=== PATIENT | female | born 1975 | race African-American/Black ===

== ENCOUNTER → 2016-10-15 | Outpatient (CLI) | payer BC ==
[~2016-10-15] MED LIST: ALDACTONE PO; BACTRIM DS TABL1 TA1 PO; CHOLESTEROL MED; GLUCOPHAGE XR500 MG PO; NO MEDICATIONS; VITAMIN D250000 UNIT PO; ZOFRAN ODT4 MG PO
--- NOTE | ~2016-10-15 | MY11 ---
[facility] A Service of [facility] RADIOLOGY TEXT RESULTS PATIENT: OSIRIS MONIQUE LOCATION: [facility] : 79 UNIT #: [id number] AGE: [address]: Annie Aj PERSONAL CARE WORKER SEX: F ORDER DR: [id number] [address] [address] [id number] MR#: [id number] Acc #: [id number] NAME: OSIRIS MONIQUE : 1975 SEX: F STUDY DATE/TIME: 10/15/2016 14:28 UNIT: [facility] ROOM: STUDY DESCRIPTION: MY Mammogram Screening Dig Geremias Attending Physician: Annie Aj A.P.R.N. Referring Physician: Annie Aj A.P.R.N. Ordering Physician: Annie Aj A.P.R.N. Primary Care Physician: Annie Aj A.P.R.N. MEDICAL IMAGING REPORT This report is preliminary unless electronic signature is present. EXAM Digital screening mammogram 10/15/16, [facility]. HISTORY 41-year-old woman, previous bilateral breast reduction surgery. No risk elevation. COMPARISON 09/21/07. TECHNIQUE Digital imaging of each breast was completed utilizing screening protocol. Review includes FDA-approved CAD device. FINDINGS Breast parenchyma is fatty replaced bilaterally. Bilateral surgical scars are less apparent, and there is some associated dystrophic calcification associated with each scar. Distortion is slightly greater on the right. I see no suspicious mass and no suspicious microcalcifications. IMPRESSION Benign mammogram. Annual screening recommended. Patients over the age of 40 are entered into a reminder system with target due date for the next mammogram. A result letter will also be sent to the patient. BIRADS: 2 Benign findings. Dictated by... Archie Gonzalez M.D. [facility] A Service [facility] RADIOLOGY TEXT RESULTS PATIENT: OSIRIS MONIQUE LOCATION: [facility] : 79 UNIT #: [id number] AGE: [address]: Annie Aj SEX: F ORDER DR: THIS IS AN ELECTRONICALLY VERIFIED REPORT Archie Gonzalez M.D. at 10/18/2016 8:12 AM MELA/spencer TD: 10/15/2016 16:05 JOB #: [id number] MEDICAL IMAGING REPORT Page 1 of 1
== END | disposition home or self-care (01) ==
LOC: SMAM 13:30
DX: Z12.31 Encounter for screening mammogram for malignant neoplasm of breast (principal)
CPT/HCPCS: G0202

== ENCOUNTER 2016-12-01 00:20 | Emergency (ER) | payer BC ==
[~2016-12-01] VITALS: Ht 162.6 cm; Wt 104.3 kg
[~2016-12-01 00:20] MED LIST changes: -ALDACTONE PO; -CHOLESTEROL MED; -GLUCOPHAGE XR500 MG PO; -VITAMIN D250000 UNIT PO
[2016-12-01] MEDS ORDERED: CHOLESTEROL MED (00:37)
[2016-12-01] MEDS ORDERED: ALDACTONE PO (00:37)
[2016-12-01] MEDS ORDERED: VITAMIN D250000 UNIT PO (00:37)
[2016-12-01 01:47] LABS: URINE SOURCE CLEAN CATCH
[2016-12-01 01:50] LABS: URINE APPEARANCE CLEAR; URINE BILIRUBIN NEG (NEG); URINE BLOOD TRACE-INTACT (NEG); URINE COLOR YELLOW; URINE GLUCOSE 300 MG/DL (NORM); URINE LEUKOCYTE ESTERASE NEG (NEG); URINE NITRATE NEG (NEG); URINE PROTEIN NEG (NEG); URINE SPECIFIC GRAVITY <=1.005 (1.003-1.035); URINE UROBILINOGEN 0.2 MG/DL (NORM)
[2016-12-01 01:53] LABS: BASOPHIL# 0.1 X10e3 (0-0.3); BASOPHIL% 0.9 % (0-2.5); EOSINOPHIL% 0.7 % (0.0-7.0); HEMATOCRIT 38.6 % (35.0-45.0); HEMOGLOBIN 12.6 gm/dL (12.0-16.0); LYMPHOCYTE# 2.3 X10e3 (1.0-3.5); LYMPHOCYTE% 31.6 % (17.0-45.0); MEAN CELL VOLUME 92.5 FL (83-96); MEAN CORPUSCULAR HEMOGLOBIN 30.2 PG (28-34); MEAN CORPUSCULAR HGB CONC 32.6 g/dL (30-36); MEAN PLATELET VOLUME 8.8 FL (6.5-11.5); MICRO INDICATED? YES; MONOCYTE# 0.5 X10e3 (0-1.0); MONOCYTE% 6.6 % (3.0-12.0); NEUTROPHIL# 4.4 X10e3 (1.5-7.1); NEUTROPHIL% 60.2 % (40-75); PLATELET COUNT 265 X10e3 (140-420); RED BLOOD COUNT 4.17 X10e (3.90-5.30); RED CELL DISTRIBUTION WIDTH 14.5 % (11.0-15.5); URINE KETONE 2+ (NEG); WHITE BLOOD COUNT 7.2 X10e3 (4.0-10.5)
[2016-12-01 01:55] LABS: DIFF IND NO
[2016-12-01 01:57] LABS: CULTURE INDICATED? NO; URINE BACTERIA NEG (NEG); URINE SQUAMOUS EPITHELIAL CELL FEW /[HPF]; URINE WBC NEG /[HPF] (0-5)
[2016-12-01 02:10] LABS: ALBUMIN SERUM 4.6 g/dL (3.5-5.0); BILIRUBIN,TOTAL 0.6 mg/dL (0.2-2.0); BUN/CREATININE RATIO 13.63; CALCIUM SERUM 9.6 mg/dL (8.4-10.2); CREATININE SERUM 1.1 mg/dL (0.6-1.4); GLOM FILT RATE Estimated 73.3 mL/min (>60); POTASSIUM 3.9 mmol/L (3.5-5.1); PROTEIN TOTAL SERUM 8.4 g/dL (6.0-8.3)
== END 2016-12-01 05:24 | disposition home or self-care (01) ==
LOC: SED 00:20
PROVIDERS: Emergency Medicine
DX: E11.65 Type 2 diabetes mellitus with hyperglycemia (principal); E78.5 Hyperlipidemia, unspecified; F17.200 Nicotine dependence, unspecified, uncomplicated
CPT/HCPCS: 36415; 80053; 81003; 82947; 85025; 96361; 96374; 99285

== ENCOUNTER 2017-01-13 15:01 | Emergency (ER) | payer BC ==
[~2017-01-13 15:01] MED LIST changes: +ALDACTONE PO; +CHOLESTEROL MED; +VITAMIN D250000 UNIT PO
[2017-01-13] MEDS ORDERED: GLUCOPHAGE XR500 MG PO (15:07)
[2017-01-13 17:01] LABS: URINE APPEARANCE CLEAR; URINE BILIRUBIN NEG (NEG); URINE BLOOD TRACE-LYSED (NEG); URINE COLOR YELLOW; URINE GLUCOSE 300 MG/DL (NORM); URINE LEUKOCYTE ESTERASE NEG (NEG); URINE NITRATE NEG (NEG); URINE PH 5.5 (5-8); URINE PROTEIN NEG (NEG); URINE UROBILINOGEN 0.2 MG/DL (NORM)
[2017-01-13 17:01] LABS: BASOPHIL# 0.1 X10e3 (0-0.3); BASOPHIL% 0.9 % (0-2.5); EOSINOPHIL% 0.7 % (0.0-7.0); HEMATOCRIT 41.7 % (35.0-45.0); HEMOGLOBIN 14.1 gm/dL (12.0-16.0); LYMPHOCYTE# 2.4 X10e3 (1.0-3.5); LYMPHOCYTE% 33.8 % (17.0-45.0); MEAN CELL VOLUME 91.6 FL (83-96); MEAN CORPUSCULAR HGB CONC 33.8 g/dL (30-36); MONOCYTE# 0.4 X10e3 (0-1.0); MONOCYTE% 5.6 % (3.0-12.0); NEUTROPHIL# 4.2 X10e3 (1.5-7.1); PLATELET COUNT 238 X10e3 (140-420); RED BLOOD COUNT 4.55 X10e (3.90-5.30); RED CELL DISTRIBUTION WIDTH 14.2 % (11.0-15.5); WHITE BLOOD COUNT 7.1 X10e3 (4.0-10.5)
[2017-01-13 17:07] LABS: MICRO INDICATED? YES; URINE KETONE 2+ (NEG); URINE SOURCE CLEAN CATCH
[2017-01-13 17:09] LABS: DIFF IND NO
[2017-01-13 17:09] LABS: CULTURE INDICATED? NO; URINE BACTERIA NEG (NEG); URINE RBC 0-2 /[HPF] (0-2); URINE SQUAMOUS EPITHELIAL CELL FEW /[HPF]; URINE WBC 0-2 /[HPF] (0-5)
[2017-01-13 17:18] LABS: ALBUMIN SERUM 3.9 g/dL (3.5-5.0); BILIRUBIN, DIRECT 0.1 mg/dL (0.0-0.2); BILIRUBIN,INDIRECT 0.6 mg/dL (0.0-0.9); BILIRUBIN,TOTAL 0.7 mg/dL (0.2-2.0); BUN/CREATININE RATIO 11.11; CALCIUM SERUM 9.5 mg/dL (8.4-10.2); CREATININE SERUM 0.9 mg/dL (0.6-1.4); GLOM FILT RATE Estimated 93.4 mL/min (>60); PROTEIN TOTAL SERUM 7.1 g/dL (6.0-8.3)
== END 2017-01-13 18:36 | disposition home or self-care (01) ==
LOC: SED 15:01
PROVIDERS: Emergency Medicine
DX: E13.10 Other specified diabetes mellitus with ketoacidosis without coma (principal); Z86.14 Personal history of Methicillin resistant Staphylococcus aureus infection; I10 Essential (primary) hypertension; F17.200 Nicotine dependence, unspecified, uncomplicated
CPT/HCPCS: 36415; 80048; 80076; 81003; 82010; 82947; 84703; 85025; 96374; 96375; 99283; J2405